=== PATIENT | female | born 1985 | race Caucasian/White ===

== ENCOUNTER 2017-07-12 10:05 | Day surgery (SDC) | payer OTHER ==
[~2017-07-12] VITALS: Ht 175.3 cm; Wt 83.0 kg
[2017-07-12] MEDS ORDERED: FENTANYL PF 250 MCG/5ML ONE (10:53)
[2017-07-12] MEDS ORDERED: MIDAZOLAM 1 MG/ML, 2ML ONE (10:53)
[2017-07-12] MEDS ORDERED: PROPOFOL 10 MG/ML, 20ML ONE (10:54)
[2017-07-12] MEDS ORDERED: SODIUM CHLORIDE 0.9% PF 10ML ONE (10:55)
[2017-07-12] MEDS ORDERED: CEFAZOLIN 1,000 MG ONE ×2 (10:55)
[2017-07-12] MEDS ORDERED: ONDANSETRON 2MG/ML, 2ML ONE (10:55)
[2017-07-12] MEDS ORDERED: DEXAMETHASONE 4 MG/ML, 1ML ONE ×2 (10:55)
[2017-07-12 11:20] VITALS: BP 143/87
[2017-07-12] MEDS ORDERED: LACTATED RINGERS 1,000 ML IV SCH (11:22)
[2017-07-12] MEDS ORDERED: LIDOCAINE 1%, 2ML ONE (11:27)
[2017-07-12] MEDS ORDERED: LIDOCAINE 1%, 2ML SQ PRN (11:30)
[2017-07-12] MEDS ORDERED: VASOPRESSIN 20 UNIT/ML, 1ML ONE (11:38)
[2017-07-12] MEDS ORDERED: MISOPROSTOL 200 MCG TABLET ONE (11:38)
[2017-07-12] MEDS ORDERED: OXYTOCIN 10 UNITS/ML, 1ML ONE (11:38)
[2017-07-12] MEDS ORDERED: NONE PER PT (11:44)
[2017-07-12] MEDS ORDERED: METHYLERGONOVINE 0.2 MG/ML IM ONE (11:51)
[2017-07-12 11:52] VITALS: BP 143/87
[2017-07-12 11:57] LABS: BASOPHILS # (AUTO) 0.03 x10^3/uL (0-0.1); BASOPHILS % (AUTO) 1 % (0-1); EOSINOPHILS # (AUTO) 0.04 x10^3/uL (0-0.4); EOSINOPHILS % (AUTO) 1 % (1-7); LYMPHOCYTES # (AUTO) 1.78 x10^3/uL (1-3.4); LYMPHOCYTES % (AUTO) 28 % (22-44); MD NO; MEAN CORPUSCULAR HEMOGLOBIN 31.7 pg (27.0-34.8); MEAN CORPUSCULAR HGB CONC 34.2 g/dL (32.4-35.8); MEAN CORPUSCULAR VOLUME 92.7 fL (80-100); MEAN PLATELET VOLUME 8.4 fL (7.4-10.4); MONOCYTES # (AUTO) 0.46 x10^3/uL (0.2-0.8); MONOCYTES % (AUTO) 7 % (2-9); NEUTROPHILS # (AUTO) 4.15 x10^3/uL (1.8-6.8); NEUTROPHILS % (AUTO) 64 % (42-75); PLATELET COUNT 264 x10^3/uL (130-400); RED BLOOD COUNT 4.58 x10^6/uL (3.82-5.3); RED CELL DISTRIBUTION WIDTH 12.3 % (9.6-15.2)
[2017-07-12] MEDS ORDERED: FENTANYL PF 100 MCG/2ML IV PRN (12:00)
[2017-07-12] MEDS ORDERED: PROMETHAZINE 25 MG/ML, 1ML IV PRN (12:00)
[2017-07-12] MEDS ORDERED: ACETAMINOPHEN 325 MG TABLET PO PRN (12:00)
[2017-07-12] MEDS ORDERED: OXYcodone 5 MG/5 ML ORAL.SOL UDC PO PRN (12:00)
[2017-07-12] MEDS ORDERED: MEPERIDINE/PF 25MG/0.5ML IVPush PRN (12:00)
[2017-07-12] MEDS ORDERED: HYDROmorphone 1 MG/ML, 1ML IV PRN (12:00)
[2017-07-12] MEDS ORDERED: ONDANSETRON 2MG/ML, 2ML IVPush PRN (12:00)
[2017-07-12 12:15] LABS: MICROSCOPIC INDICATED
[2017-07-12 12:20] LABS: CULTURE INDICATED? NO
[2017-07-12] MEDS ORDERED: KETOROLAC 30 MG/1 ML ONE (12:28)
== END 2017-07-12 14:55 ==
LOC: OUT 10:05
PROVIDERS: ATTEND Obstetrics & Gynecology
DX: O02.1 Missed abortion (principal); Z3A.01 Less than 8 weeks gestation of pregnancy
CPT/HCPCS: 36415; 59820; 81001; 84702; 85025; 88305; J0690; J1100; J1885; J2250; J2405; J2704; J3010; J3490; J7120; J2210; J2590